=== PATIENT | male | born 1950 | race Caucasian/White ===

== ENCOUNTER 2018-07-24 11:22 | Day surgery (SDC) | payer MEDICARE, OTHER ==
[2018-07-20 11:51] VITALS: BMI 27.8
[~2018-07-24 11:22] MED LIST: ALPRAZolam 0.25 MG TAB PO PRN; ALPRAZolam 0.5 MG TAB PO PRN; ASPIRIN 325 MG TAB PO STA; ATORVASTATIN 80 MG TAB PO STA; NITROGLYCERIN SL TABS 0.4 MG TAB SUBLINGUAL PRN; SODIUM CHLORIDE 0.9% 1,000 ML in EMPTY BAG 1 BAG IV ONE
[2018-07-24 12:00] LABS: Basophils # (A) 0.1 k/uL (0-0.2); Basophils % (A) 1 %; Eosinophils # (A) 0.4 k/uL (0-0.7); Eosinophils % (A) 4 %; HCT 44.6 % (39.0-53.0); HGB 14.4 gm/dL (13.0-17.5); Lymphocytes # (A) 2.7 k/uL (1.0-4.8); Lymphocytes % (A) 29 %; MCHC 32.3 g/dL (31.0-37.0); MCV 92.7 fL (80.0-100.0); Mean Platelet Volume 7.8; Monocytes # (A) 0.7 k/uL (0-1.0); Monocytes % (A) 7 %; Neutrophils # (A) 5.2 k/uL (1.3-7.7); Neutrophils % (A) 57 %; Platelet Count 172 k/uL (150-450); RBC 4.81 m/uL (4.30-5.90); RDW 14.2 % (11.5-15.5); WBC 9.2 k/uL (3.8-10.6)
[2018-07-24] MEDS ORDERED: SODIUM CHLORIDE 0.9% 1,000 ML IV ONE (12:00)
[2018-07-24 12:14] LABS: Anion Gap 5 mmol/L; Blood Urea Nitrogen 18 mg/dL (9-20); Calcium 8.9 mg/dL (8.4-10.2); Carbon Dioxide 24 mmol/L (22-30); Chloride 114 mmol/L (98-107); Glucose 107 mg/dL (74-99); Potassium 4.4 mmol/L (3.5-5.1); Sodium 143 mmol/L (137-145)
[2018-07-24] MEDS ORDERED: VERAPAMIL 2.5 MG/ML 2 ML AMP ONE (12:33)
[2018-07-24] MEDS ORDERED: LIDOCAINE 1% INJ 10MG/ML (20 ML MDV) ONE (12:33)
[2018-07-24] MEDS ORDERED: MIDAZOLAM 2 MG/2 ML VIAL ONE (12:37)
[2018-07-24] MEDS ORDERED: diphenhydrAMINE 50 MG/ML 1 ML VIAL ONE (12:37)
[2018-07-24] MEDS ORDERED: diphenhydrAMINE 50 MG/ML 1 ML VIAL IVP ONE (12:39)
[2018-07-24] MEDS ORDERED: MIDAZOLAM 2 MG/2 ML VIAL IV ONE (12:39)
[2018-07-24] MEDS ORDERED: LIDOCAINE 1% INJ 10MG/ML (20 ML MDV) SQ ONE (12:48)
[2018-07-24] MEDS: VERAPAMIL SYRINGE (5 MG/10 ML) INTRAARTER ONE ×2 (12:50→13:42)
[2018-07-24] MEDS ORDERED: BIVALIRUDIN 250 MG in SODIUM CHLORIDE 0.9% 50 ML IV ONE (13:07)
[2018-07-24] MEDS ORDERED: BIVALIRUDIN BOLUS 250 MG/50 ML IV ONE (13:07)
[2018-07-24] MEDS ORDERED: IOPAMIDOL-370 100ML BTL INJ ONE ×2 (13:13→13:49)
[2018-07-24] MEDS ORDERED: niCARdipine Syringe (1,000 mcg/10 mL) INTRACORON ONE (13:39)
[2018-07-24] MEDS ORDERED: TICAGRELOR 90 MG TAB ONE (13:40)
[2018-07-24] MEDS ORDERED: TICAGRELOR 90 MG TAB PO ONE (13:42)
[2018-07-24] MEDS ORDERED: ZOLPIDEM 5 MG TAB PO PRN (13:48)
[2018-07-24] MEDS ORDERED: MAG HYDROX/AL HYDROX/SIMETH 30 ML CUP PO PRN (13:48)
[2018-07-24] MEDS ORDERED: ATROPINE SULFATE 0.1 MG/ML 10ML SYRINGE IV PRN (13:48)
[2018-07-24] MEDS ORDERED: RX INFO: IV CONTRAST WAS GIVEN 1 EACH MISC MISCELLANE PRN (13:48)
[2018-07-24] MEDS ORDERED: NITROGLYCERIN SL TABS 0.4 MG TAB SUBLINGUAL PRN ×2 (13:48→14:26)
[2018-07-24] MEDS ORDERED: MORPHINE SULFATE 4 MG/ML SYRINGE ONE (13:55)
[2018-07-24] MEDS ORDERED: MORPHINE SULFATE 4 MG/ML SYRINGE IV ONE (13:56)
[2018-07-24] MEDS ORDERED: HYDROcodone/APAP 10-325MG 1 EACH TAB PO PRN (14:26)
[2018-07-24] MEDS ORDERED: DICLOFENAC SODIUM GEL 100 GM TUBE TOPICAL PRN (14:26)
[2018-07-24] MEDS ORDERED: FUROSEMIDE 20 MG TAB PO PRN (14:26)
[2018-07-24] MEDS: IPRATROPIUM-ALBUTEROL 3 ML NEB INHALATION SCH ×2 (15:23→19:24)
[2018-07-24] MEDS: SODIUM CHLORIDE 0.9% 1,000 ML IV SCH (16:16)
[2018-07-24] MEDS: CYCLOBENZAPRINE 10 MG TAB PO SCH ×2 (16:16→22:03)
[2018-07-24 19:45] VITALS: RESP 18
[2018-07-24] MEDS: GABAPENTIN 300 MG CAP PO SCH (19:47)
[2018-07-24] MEDS: METOPROLOL TARTRATE 50 MG TAB PO SCH (19:47)
[2018-07-24] MEDS ORDERED: FLUTICASONE 110 MCG INHALER INHALATION SCH (20:00)
[2018-07-24] MEDS ORDERED: ATORVASTATIN 80 MG TAB PO SCH (21:00)
[2018-07-24] MEDS ORDERED: MONTELUKAST 10 MG TAB PO SCH (21:00)
[2018-07-24] MEDS ORDERED: TAMSULOSIN 0.4 MG CAP.ER.24H PO SCH (21:00)
[2018-07-24] MEDS ORDERED: DOXAZOSIN 1 MG TAB PO SCH (21:00)
--- NOTE | 2018-07-24 21:44 | CC ---
CARDIAC CATHETERIZATION REPORT DATE OF SERVICE: 07/24/2018 PROCEDURE: 1. Left heart catheterization and coronary angiography. 2. Percutaneous transluminal coronary angioplasty and stenting of the major diagonal branch of left anterior descending coronary artery with a drug-eluting stent. 3. Percutaneous transluminal coronary angioplasty and stenting of an in-stent restenosis within the mid left anterior descending coronary artery. PERFORMED BY: Dr. Rob Way. Moderate conscious sedation time was 57 minutes. Patient was administered Benadryl, Versed and morphine 1 mg. His oxygen saturation, hemodynamics and EKG were monitored closely. CLINICAL INFO : Pt with known prior Ant PR and multiple LAD PCI, presents with persistent Angina. Advised cath, PCI if needed. CARDIAC CATHETERIZATION FINDINGS: 1. The left ventricular end-diastolic pressure was about was 14-15 mmHg without any gradient across the aortic valve. LV gram was not performed. 2. Right coronary artery is a dominant vessel with a 55% proximal lesion and minor irregularities. Distal RCA also has a 40% lesion and bifurcates into a large PDA and PLV. This is a dominant vessel. 3. Left main is a long, patent, disease-free vessel that bifurcates into LAD and circumflex. 4. Left anterior descending coronary artery: This vessel was stented on multiple occasions. The mid segment within the stented area has about a 55% stenosis. The flow also is somewhat sluggish in the LAD. There is a small septal branch that comes off from the LAD which also has some sluggish flow. Very proximally a large diagonal branch comes off and this has a proximal lesion of 70% to 80% and beyond it another 40% lesion is noted and it bifurcates into 2 branches. 5. Circumflex coronary artery: This is a small nondominant vessel which gives off a single obtuse marginal laterally and then runs in the AV groove. There are minor irregularities, but no significant disease is noted. PROCEDURE DETAILS: Under strict aseptic precautions and local anesthesia a 6-Japanese introducer was placed in the right radial artery. Using an Ultimate 1 catheter, I performed selective coronary angiography of both coronary arteries, and also a pigtail catheter was used to check LV pressure, but LV gram was not performed. PCI PROCEDURE DETAILS: I used a Voda left 3.5 curved guide catheter to cannulate the left coronary artery. A Whisper J-wire was used to cross the lesion in the diagonal and the wire was kept distally. Predilatation of the diagonal lesion was performed using a 2.5 caliber 8 mm long Trek balloon. I then deployed an 8 mm long 2.5 caliber Xience stent at 12 atmospheres. It appeared that the stent was not very well expanded and the balloon in the stent seemed to have ruptured. I recognized this immediately. The balloon was taken out and I then used an 8 mm long NC Trek balloon and dilated the stent to 12 atmospheres. Excellent angiographic result was achieved. I then advanced the wire into the LAD, and within the proximal two thirds of the stented segment I deployed a new 2.75 caliber 18 mm long Xience stent at 15 atmospheres. Excellent angiographic result was achieved. The distal portion of the previous stent was also dilated with the same balloon at 12 atmospheres. Excellent angiographic result without complication was achieved. The patient received 180 mg of Brilinta and also received Angiomax bolus and infusion as per protocol. The sheath and catheters were taken out and TR band applied as per protocol. Saturation in the fingers of the right hand was 93%. Excellent angiographic result without complication was achieved and the patient was sent to the room in a stable condition. The findings were discussed at length with the family members. MMODL / IJN: [id number] / HAM
--- NOTE | 2018-07-24 21:47 | LTR ---
July 24, 2018 To: Dr. Lety Gerardo Re: Clif Bryant (54) Dear Dr. Gerardo, Thank you for the opportunity to participate in the care of Mr. Bryant. I had the pleasure of evaluating the patient in the office a couple of weeks ago, and because of symptoms of unstable angina I performed coronary angiography which revealed a significant lesion in a major diagonal branch, and also there was some in-stent restenosis of LAD. These were addressed with two drug-eluting stent with excellent results. I expect the patient to be discharged tomorrow if he remains stable. Thank you for your referral. Please call for questions. With kindest regards. Sincerely yours, Rob CHAIREZ / GREG: [id number] /
[2018-07-25 07:13] LABS: Basophils % (A) 1 %; Eosinophils # (A) 0.3 k/uL (0-0.7); Eosinophils % (A) 3 %; HCT 42.2 % (39.0-53.0); HGB 13.5 gm/dL (13.0-17.5); Lymphocytes # (A) 2.5 k/uL (1.0-4.8); Lymphocytes % (A) 28 %; MCV 93.8 fL (80.0-100.0); Mean Platelet Volume 8.4; Monocytes # (A) 0.6 k/uL (0-1.0); Monocytes % (A) 7 %; Neutrophils # (A) 5.4 k/uL (1.3-7.7); Neutrophils % (A) 60 %; Platelet Count 147 k/uL (150-450); RBC 4.49 m/uL (4.30-5.90); RDW 14.2 % (11.5-15.5); WBC 9.1 k/uL (3.8-10.6)
[2018-07-25 07:28] LABS: Anion Gap 5 mmol/L; Blood Urea Nitrogen 13 mg/dL (9-20); Calcium 8.6 mg/dL (8.4-10.2); Carbon Dioxide 23 mmol/L (22-30); Chloride 114 mmol/L (98-107); Glucose 80 mg/dL (74-99); Potassium 4.3 mmol/L (3.5-5.1); Sodium 142 mmol/L (137-145)
[2018-07-25] MEDS: SODIUM CHLORIDE 0.9% 1,000 ML IV SCH (08:08)
[2018-07-25] MEDS: METOPROLOL TARTRATE 50 MG TAB PO SCH (08:09)
[2018-07-25] MEDS: CYCLOBENZAPRINE 10 MG TAB PO SCH (08:10)
[2018-07-25] MEDS: GABAPENTIN 300 MG CAP PO SCH (08:12)
[2018-07-25] MEDS ORDERED: ASPIRIN 81 MG PO SCH (09:00)
[2018-07-25] MEDS ORDERED: LISINOPRIL 10 MG TAB PO SCH (09:00)
[2018-07-25] MEDS ORDERED: CLOPIDOGREL 75 MG TAB PO SCH (09:00)
[2018-07-25] MEDS ORDERED: ATORVASTATIN 80 MG TAB PO SCH (09:00)
[2018-07-25] MEDS ORDERED: ISOSORBIDE MONONITRATE ER 30 MG TAB.ER.24H PO SCH (09:00)
[2018-07-25 09:34] VITALS: BP 147/84; PULSE 84; TEMP 96.1
--- NOTE | 2018-07-25 12:06 | DS ---
DISCHARGE SUMMARY DATE OF ADMISSION: 07/24/2018 DATE OF DISCHARGE: 07/25/2018 DIAGNOSES: 1. Unstable angina with history of prior myocardial infarction. PROCEDURES PERFORMED: 1. Left heart catheterization and coronary angiography. 2. PTCA and stenting of major diagonal branch with a drug-eluting stent. 3. PTCA and stenting of the previously stented in-stent mid LAD restenotic lesion. Mr. Bryant was brought in electively for a cardiac cath because of recurrent episodes of chest discomfort suggestive of angina. This gentleman underwent stenting of mid LAD on multiple occasions. The last being in 2016 when he had a total occlusion at [facility]. Procedure was performed uneventfully from the right radial approach. The patient had a new lesion in the diagonal branch which was a fairly large-sized diagonal branch with a proximal lesion. This was addressed with a drug-eluting stent of 2.5 caliber. Subsequently, I performed a dilatation and stenting of a previously stented mid LAD within the previous stent. Excellent angiographic result was achieved. Postprocedure course was uneventful. Procedure was performed from the right radial approach. This morning, patient is doing well, asymptomatic, ambulating without symptoms. His right radial cath site is clean and dry. Blood pressure is 120/70, pulse rate is 70 per minute. EKG revealed evidence of old anterior IL and sinus mechanism unchanged. Laboratory data was good. S1, S2 heard normally. Lungs were clear. There is a short systolic murmur. Lungs are clear. Abdomen and lower extremity exam was unchanged. There was no JVD. This patient will be discharged today and he will see me or my nurse practitioner in the office in about 1 week. Discharge instructions regarding activity, diet and medications were given. He will be on aspirin and Plavix along with statin agents and beta kaila. The patient was given discharge instructions and also followup appointment information. MMODL / IJN: [id number] /
== END 2018-07-25 09:30 | disposition home or self-care (01) ==
LOC: CATHCVL 11:22 → 6SEL 13:42 → CATHCVL 07-25 09:30
PROVIDERS: ATTEND Internal Medicine Interventional Cardiology
DX: I25.110 Atherosclerotic heart disease of native coronary artery with unstable angina pectoris (principal); T82.855A Stenosis of coronary artery stent, initial encounter; I10 Essential (primary) hypertension; E78.00 Pure hypercholesterolemia, unspecified; I69.398 Other sequelae of cerebral infarction; H54.8 Legal blindness, as defined in USA; I25.2 Old myocardial infarction; F17.210 Nicotine dependence, cigarettes, uncomplicated; Z95.5 Presence of coronary angioplasty implant and graft; Z79.82 Long term (current) use of aspirin; Z79.51 Long term (current) use of inhaled steroids; Z79.899 Other long term (current) drug therapy
CPT/HCPCS: 94640 ×2; 93458; 80048 ×2; 85025 ×2; C9600; C9601; C1769; C1887; C1725 ×2; C1894; C1874; J2250; J2270; J1200; J2001; J0583; Q9967

== ENCOUNTER 2018-09-21 10:00 | Inpatient (IN) | payer MEDICARE ==
[2018-09-21 12:51] LABS: Glucose,Whole Blood 123 mg/dL (75-99)
[2018-09-21] MEDS ORDERED: MIDAZOLAM 2 MG/2 ML VIAL IVP ONE (12:55)
[2018-09-21] MEDS ORDERED: LIDOCAINE 1% INJ 10MG/ML (20 ML MDV) SQ ONE (12:57)
[2018-09-21] MEDS ORDERED: VERAPAMIL SYRINGE (5 MG/10 ML) INTRAARTER ONE (12:59)
[2018-09-21] MEDS ORDERED: HEPARIN SODIUM 1,000 UN/ML (10ML VL) IV ONE (13:01)
[2018-09-21] MEDS ORDERED: SODIUM CHLORIDE 0.9% 1,000 ML IV ONE (13:01)
[2018-09-21] MEDS ORDERED: IOPAMIDOL-370 100ML BTL INJ ONE (13:15)
[2018-09-21] MEDS ORDERED: CLOPIDOGREL 75 MG TAB PO ONE (13:18)
[2018-09-21] MEDS ORDERED: RX INFO: IV CONTRAST WAS GIVEN 1 EACH MISC MISCELLANE PRN (13:24)
[2018-09-21] MEDS ORDERED: SODIUM CHLORIDE 0.9% 1,000 ML IV SCH (13:30)
[2018-09-21] MEDS ORDERED: FUROSEMIDE 20 MG TAB PO PRN (13:53)
[2018-09-21] MEDS ORDERED: HYDROcodone/APAP 10-325MG 1 EACH TAB PO PRN (13:53)
[2018-09-21] MEDS ORDERED: NITROGLYCERIN SL TABS 0.4 MG TAB SUBLINGUAL PRN ×2 (13:53)
[2018-09-21] MEDS ORDERED: ATORVASTATIN 80 MG TAB PO SCH (14:00)
--- NOTE | 2018-09-21 14:19 | CC ---
CARDIAC CATHETERIZATION REPORT DATE OF SERVICE: 09/21/2018 PROCEDURE: Left heart catheterization, coronary angiography. PERFORMED BY: Dr. Rob Way. Moderate conscious sedation time was 20 minutes. Patient was given Versed and his oxygen saturation, hemodynamics and EKG were monitored closely. CLINICAL INFORMATION: Mr. Clif Bryant is a 68-year-old gentleman with history of hypertension, hyperlipidemia, previous occipital stroke who is legally blind. He underwent stenting of a restenotic proximal/mid LAD lesion on July 24 of this year. He also had a stenting of the diagonal branch, which was a de Vamshi lesion at the same. He presented to [facility] with chest pain and shortness of breath, had negative troponins, was seen and evaluated by Dr. Dalal, who advised cardiac catheterization and he was transferred here for the procedure. Risks, benefits, options, rationale were explained to the patient. PROCEDURE NOTE: Under local anesthesia and strict aseptic precautions, a 6-Tajik introducer was placed in the right radial artery. Using standard Ta catheters I performed coronary angiography and the same right Ta catheter was used to check LV pressures. LV-gram was not performed. Catheter was taken out and sheath was taken out and TR band applied as per protocol with saturation of the fingers of the right hand of 96%. The patient tolerated procedure well without complications. CARDIAC CATHETERIZATION FINDINGS: The left ventricular end-diastolic pressure was 12 mmHg and there was no gradient across the aortic valve. CORONARY ANGIOGRAPHY FINDINGS: LEFT MAIN CORONARY ARTERY: Short patent disease-free vessel which bifurcates into LAD and circumflex. There is no significant disease in the left main coronary artery. LEFT ANTERIOR DESCENDING CORONARY ARTERY: Good caliber vessel extends along the anterior wall. There is evidence of a previous stented segment. Within the proximal portion of stented segment and also proximal to it, a stent was placed on July 24, that area is widely patent with remarkably good angiographic appearance and flow. There is no evidence of any restenosis. The lesion is less than 20%. Major diagonal branch that comes off very proximally was also stented. It is widely patent with very good flow. LAD therefore has 2 areas of stenting. The LAD itself and the diagonal, both of which are widely patent with very good flow. No evidence of any restenosis is noted. This is an area where patient had a previous myocardial infarction. LEFT POSTERIOR CIRCUMFLEX CORONARY ARTERY: A small nondominant vessel that gives off a single obtuse marginal, runs laterally, both vessels are small in caliber and distribution no significant disease. RIGHT CORONARY ARTERY: Large dominant vessel proximally. There is about 40% to 45% lesion at the origin of an acute marginal branch. This was similar or better compared to the previous study from June. Distally the vessel bifurcates into PDA and PLV. No significant disease. The dominant RCA therefore has a 40% to 45% proximal lesion. No other significant disease is noted. LEFT VENTRICULOGRAM: LV-gram was not performed. FINAL IMPRESSION: This patient has a right dominant system. His previously stented LAD in the proximal portion and the major diagonal that was stented both of which were stented on July 24 are now widely patent with remarkably good angiographic appearance and flow. Nondominant circumflex is free of significant disease. RCA has about a 40% proximal lesion and it is a dominant vessel and filling pressures are normal. RECOMMENDATIONS: I am recommending that we will continue medical therapy. We will check an echocardiogram to assess LV function and I will add Lasix 40 mg to his regimen starting tomorrow. Patient will have an echocardiogram today and he will be discharged. Results were discussed with the patient and also family members and I expect that he will be discharged later on today and will keep his appointments. We will check an echocardiogram to assess LV function. MMODL / IJN: [id number] /
[2018-09-21 15:35] VITALS: RESP 20
[2018-09-21] MEDS ORDERED: CYCLOBENZAPRINE 5 MG TAB PO SCH (16:00)
--- NOTE | 2018-09-21 17:28 | ECHOF ---
Referral Reason:LV FUNCTION MEASUREMENTS -------- HEIGHT: 177.8 cm WEIGHT: 87.1 kg BP: RVIDd: 2.6 cm (< 3.3) IVSd: 1.4 cm (0.6 - 1.1) LVIDd: 4.6 cm (3.9 - 5.3) LVPWd: 1.4 cm (0.6 - 1.1) IVSs: 1.5 cm LVIDs: 3.6 cm LVPWs: 1.5 cm LAESV Index (A-L): 17.32 ml/m Ao Diam: 2.4 cm (2.0 - 3.7) AV Cusp: 1.4 cm (1.5 - 2.6) LA Diam: 2.3 cm (2.7 - 3.8) EPSS: 1.1 cm MV E Gonzalo: 0.92 m/s MV DecT: 221 ms MV A Gonzalo: 1.05 m/s MV E/A Ratio: 0.88 RAP: 5.00 mmHg RVSP: 9.75 mmHg MV EF SLOPE: 104.15 mm/s (70 - 150) MV EXCURSION: 1.69 cm (> 18.000) FINDINGS -------- Sinus rhythm. This was a technically adequate study. The left ventricular size is normal. There is moderate concentric left ventricular hypertrophy. O verall left ventricular systolic function is mild-moderately impaired with, an EF between 40 - 45 %. Mid anteroseptal LV wall motion is hypokinetic. Apical anterior LV wall motion is hypokinetic. Apical septum LV wall motion is hypokinetic. The right ventricle is normal in size and function. Normal LA size by volume 22+/-6 ml/m2. The right atrium is normal in size. There is mild aortic valve sclerosis. There is no evidence of aortic regurgitation. The mitral valve leaflets are mildly thickened. Mild mitral regurgitation is present. Mild tricuspid regurgitation present. Right ventricular systolic pressure is normal at < 35 mmHg. There is no evidence of pulmonary hypertension. The pulmonic valve was not well visualized. There is no pulmonic regurgitation present. The aortic root size is normal. Normal inferior vena cava with normal inspiratory collapse consistent with estimated right atrial pre ssure of 5 mmHg. There is no pericardial effusion. CONCLUSIONS -------- 1. Sinus rhythm. 2. This was a technically adequate study. 3. The left ventricular size is normal. 4. There is moderate concentric left ventricular hypertrophy. 5. Overall left ventricular systolic function is mild-moderately impaired with, an EF between 40 - 45 %. 6. Mid anteroseptal LV wall motion is hypokinetic. 7. Apical anterior LV wall motion is hypokinetic. 8. Apical septum LV wall motion is hypokinetic. 9. Normal LA size by volume 22+/-6 ml/m2. 10. There is mild aortic valve sclerosis. 11. The mitral valve leaflets are mildly thickened. 12. Mild mitral regurgitation is present. 13. Mild tricuspid regurgitation present. 14. Right ventricular systolic pressure is normal at < 35 mmHg. 15. The pulmonic valve was not well visualized. 16. There is no pulmonic regurgitation present. 17. The aortic root size is normal. 18. There is no pericardial effusion. OPERATOR AUTOMATED PROCESS: Jan Aj RDCS
[2018-09-21 17:31] VITALS: BP 106/56; PULSE 68; TEMP 97
[2018-09-21] MEDS ORDERED: IPRATROPIUM-ALBUTEROL 3 ML NEB INHALATION SCH (18:00)
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
[2018-09-21] MEDS ORDERED: GABAPENTIN 300 MG CAP PO SCH (21:00)
[2018-09-21] MEDS ORDERED: MONTELUKAST 10 MG TAB PO SCH (21:00)
[2018-09-21] MEDS ORDERED: METOPROLOL TARTRATE 50 MG TAB PO SCH (21:00)
[2018-09-22] MEDS ORDERED: TAMSULOSIN 0.4 MG CAP.ER.24H PO SCH (09:00)
[2018-09-22] MEDS ORDERED: CLOPIDOGREL 75 MG TAB PO SCH (09:00)
[2018-09-22] MEDS ORDERED: DOXAZOSIN 1 MG TAB PO SCH (09:00)
[2018-09-22] MEDS ORDERED: LISINOPRIL 10 MG TAB PO SCH (09:00)
[2018-09-22] MEDS ORDERED: ASPIRIN 81 MG PO SCH (09:00)
[2018-09-22] MEDS ORDERED: ISOSORBIDE MONONITRATE ER 30 MG TAB.ER.24H PO SCH (09:00)
[2018-09-22] MEDS ORDERED: FUROSEMIDE 40 MG TAB PO SCH (09:00)
== END 2018-09-21 19:14 | disposition home or self-care (01) | DRG 286 ==
LOC: 3SCARD 12:00
PROVIDERS: ADMIT Family Medicine; ATTEND Family Medicine
PROC: 4A023N7 Measurement of Cardiac Sampling and Pressure, Left Heart, Percutaneous Approach (ICD-10-PCS; principal; 2018-09-21 12:40)
PROC: B2111ZZ Fluoroscopy of Multiple Coronary Arteries using Low Osmolar Contrast (ICD-10-PCS; principal; 2018-09-21 12:40)
DX: I25.10 Atherosclerotic heart disease of native coronary artery without angina pectoris (principal); I50.23 Acute on chronic systolic (congestive) heart failure; J45.51 Severe persistent asthma with (acute) exacerbation; E66.9 Obesity, unspecified; Z68.27 Body mass index [BMI] 27.0-27.9, adult; E78.5 Hyperlipidemia, unspecified; G47.33 Obstructive sleep apnea (adult) (pediatric); I11.0 Hypertensive heart disease with heart failure; I25.2 Old myocardial infarction; I42.9 Cardiomyopathy, unspecified; N40.0 Benign prostatic hyperplasia without lower urinary tract symptoms; Z79.02 Long term (current) use of antithrombotics/antiplatelets; Z79.82 Long term (current) use of aspirin; Z79.899 Other long term (current) drug therapy; Z80.1 Family history of malignant neoplasm of trachea, bronchus and lung; Z82.5 Family history of asthma and other chronic lower respiratory diseases; Z86.73 Personal history of transient ischemic attack (TIA), and cerebral infarction without residual deficits; Z87.891 Personal history of nicotine dependence; Z95.5 Presence of coronary angioplasty implant and graft; N18.2 Chronic kidney disease, stage 2 (mild); R73.02 Impaired glucose tolerance (oral)
CPT/HCPCS: 93306; 93458

== ENCOUNTER → 2020-05-13 | Outpatient (CLI) | payer MEDICARE ==
[2020-05-13 13:35] LABS: HCT 47.2 % (39.0-53.0); HGB 15.5 gm/dL (13.0-17.5); MCH 31.1 pg (25.0-35.0); MCHC 32.7 g/dL (31.0-37.0); Mean Platelet Volume 8.8; Platelet Count 167 k/uL (150-450); RBC 4.97 m/uL (4.30-5.90); RDW 14.2 % (11.5-15.5); WBC 10.5 k/uL (3.8-10.6)
[2020-05-13 13:47] LABS: Potassium 5.1 mmol/L (3.5-5.1)
== END | disposition home or self-care (01) ==
LOC: LABPAT 12:21
PROVIDERS: ATTEND Internal Medicine Interventional Cardiology
DX: Z01.818 Encounter for other preprocedural examination (principal); I25.10 Atherosclerotic heart disease of native coronary artery without angina pectoris
CPT/HCPCS: 36415; 80051; 82565; 84520; 85027

== ENCOUNTER → 2020-05-14 | Day surgery (SDC) | payer MEDICARE ==
[2020-05-12 15:33] VITALS: BMI 28.7
[~2020-05-14] MED LIST changes: +BUDESONIDE 0.5 MG/2 ML NEBU INHALATION SCH; +HEPARIN SODIUM 1,000 UN/ML (10ML VL) IV ONE; +IOPAMIDOL-370 100ML BTL INJ ONE; +IPRATROPIUM-ALBUTEROL 3 ML NEB INHALATION STA; +LIDOCAINE 1% INJ 10MG/ML (20 ML MDV) ONE; +LIDOCAINE 1% INJ 10MG/ML (20 ML MDV) SQ ONE; +MIDAZOLAM 2 MG/2 ML VIAL IVP ONE; +SODIUM CHLORIDE 0.9% 1,000 ML IV SCH; +VERAPAMIL 2.5 MG/ML 2 ML AMP ONE; +VERAPAMIL SYRINGE (5 MG/10 ML) INTRAARTER ONE
[2020-05-14 10:30] VITALS: TEMP 98.1
--- NOTE | 2020-05-14 13:33 | CC ---
CARDIAC CATHETERIZATION REPORT DATE OF SERVICE: 05/14/2020 PROCEDURE: Left heart catheterization and coronary angiography. PERFORMED BY: Dr. Rob Way. ANESTHESIA: Moderate conscious sedation time was 22 minutes. Patient was administered Versed. Oxygen saturation, hemodynamics and EKG were monitored closely. CLINICAL INFORMATION: Mr. Clif Bryant is a 70-year-old gentleman with a history of a previous occipital stroke and legally blind. He has CAD with a prior [place] in 2006 with an LAD intervention. Since then, he has had multiple interventions. The last one was in June of 2018 when I performed stenting of the proximal portion of the major diagonal as well as mid LAD. The mid LAD was an in-stent restenosis. He had an excellent angiographic result and was doing well, but has been having chest pain and equivocal stress test and recurrent chest pain. Therefore was advised cardiac cath after due discussion regarding risks, benefits, and options. PROCEDURE NOTE: Under local anesthesia and strict aseptic precautions, a 6-Slovenian introducer was placed in the right radial artery. Using standard Ta catheters, I performed coronary angiography and the same right Ta catheter was used to check LV pressures. LV gram was not performed. The sheath was taken out and TR band applied as per protocol with saturations of the fingers of the right hand of more than 93%. Patient tolerated procedure well. CARDIAC CATHETERIZATION FINDINGS: The left ventricular end-diastolic pressure was 14 mmHg without any gradient across aortic valve. CORONARY ANGIOGRAPHY FINDINGS: RIGHT CORONARY ARTERY: Technically, this is a dominant vessel that has minor irregularities with no significant disease. In the proximal 1/3, there is a 40% to 45% stenosis unchanged from before whereas the acute marginal comes off then the caliber improves and distally bifurcates into PDA and PLV. Distal PDA has mild diffuse disease. The RCA therefore has no critical disease. There is a 40% to 45% proximal lesion, unchanged. LEFT MAIN CORONARY ARTERY: Long patent vessel, disease-free, bifurcates into LAD and circumflex. LEFT ANTERIOR DESCENDING CORONARY ARTERY: Good caliber vessel extends along the anterior wall and gives off a high diagonal branch very proximally. No significant disease in the stented area in the proximal portion of the diagonal branch. The rest of the diagonal branch is free of significant disease. LAD after the origin of the diagonal branch has about a 30% narrowing and the stented segment is widely patent with good flow. There is no more than 40% narrowing within the stented segment. Distally, it gives off smaller septal and diagonal branches. The stent in the LAD and diagonal is widely patent. LEFT POSTERIOR CIRCUMFLEX CORONARY ARTERY: Technically, this is a small caliber, small distribution vessel. Limited area of myocardium is being supplied by it. No significant disease. Left ventriculogram was not performed. FINAL IMPRESSION: This patient has a widely patent LAD in the midportion where he had a previous in-stent restenosis and stenting in June 2018. The diagonal that was stented also is widely patent. The circumflex has no significant disease, nondominant. RCA is dominant, has a 40% to 45% proximal lesion unchanged. RECOMMENDATIONS: Findings were discussed with the patient and his . No intervention necessary. Continued medical therapy with risk factor modification advised. Patient will be discharged later on today and I will see him in one week. MMGEORGIANAL / MARAN: [id number] /
[2020-05-14 15:10] VITALS: RESP 16
[2020-05-14 18:03] VITALS: BP 129/81; PULSE 66
== END ==
LOC: CATHCVL 09:14
PROVIDERS: ATTEND Internal Medicine Interventional Cardiology
DX: I25.110 Atherosclerotic heart disease of native coronary artery with unstable angina pectoris (principal); I10 Essential (primary) hypertension; R94.39 Abnormal result of other cardiovascular function study; I25.5 Ischemic cardiomyopathy; I25.2 Old myocardial infarction; Z87.891 Personal history of nicotine dependence; E78.00 Pure hypercholesterolemia, unspecified; Z95.5 Presence of coronary angioplasty implant and graft; E78.5 Hyperlipidemia, unspecified; I69.398 Other sequelae of cerebral infarction; H54.8 Legal blindness, as defined in USA; J44.9 Chronic obstructive pulmonary disease, unspecified; Z79.02 Long term (current) use of antithrombotics/antiplatelets; Z79.82 Long term (current) use of aspirin; Z79.52 Long term (current) use of systemic steroids; Z79.899 Other long term (current) drug therapy
CPT/HCPCS: 94640; 93458; C1769; C1894; J2250; J2001; J1644; Q9967

== ENCOUNTER → 2020-07-30 | Outpatient (CLI) | payer MEDICARE ==
--- NOTE | 2020-07-30 17:16 | ECHOF ---
Referral Reason:R55 syncope and collapse MEASUREMENTS -------- HEIGHT: 180.3 cm WEIGHT: 89.4 kg BP: RVIDd: 2.1 cm (< 3.3) IVSd: 0.7 cm (0.6 - 1.1) LVIDd: 5.2 cm (3.9 - 5.3) LVPWd: 0.7 cm (0.6 - 1.1) IVSs: 0.6 cm LVIDs: 4.3 cm LVPWs: 1.3 cm Ao Diam: 2.7 cm (2.0 - 3.7) AV Cusp: 1.8 cm (1.5 - 2.6) LA Diam: 2.9 cm (2.7 - 3.8) MV EXCURSION: 10.065 mm (> 18.000) MV EF SLOPE: 59 mm/s (70 - 150) EPSS: 2.5 cm MV E Gonzalo: 0.63 m/s MV DecT: 277 ms MV A Gonzalo: 0.90 m/s MV E/A Ratio: 0.70 RAP: 5.00 mmHg RVSP: 9.27 mmHg FINDINGS -------- This was a technically difficult study with suboptimal views. The left ventricular size is normal. Left ventricular wall thickness is normal. Overall left vent ricular systolic function is moderate-severely impaired with, an EF between 30 - 35 %. Apical septu m LV wall motion is hypokinetic. [place] Hypokinesis. The right ventricle is normal in size. The left atrial size is normal. The right atrial size is normal. Lumason used The aortic valve is trileaflet and appears structurally normal. The mitral valve is normal. There is trace mitral regurgitation. The tricuspid valve appears structurally normal. Trace tricuspid regurgitation present. Right librado tricular systolic pressure is normal at < 35 mmHg. There is no pulmonic regurgitation present. The aortic root size is normal. IVC Not well visulized. There is no pericardial effusion. CONCLUSIONS -------- 1. This was a technically difficult study with suboptimal views. 2. The left ventricular size is normal. 3. Left ventricular wall thickness is normal. 4. Overall left ventricular systolic function is moderate-severely impaired with, an EF between 30 - 35 %. 5. Apical septum LV wall motion is hypokinetic. 6. [place] Hypokinesis. 7. Lumason used 8. There is trace mitral regurgitation. 9. Trace tricuspid regurgitation present. 10. There is no pericardial effusion. DIRECTOR OPERATING ROOM: Etelvina Young RDCS
--- NOTE | 2020-07-31 06:55 | US ---
EXAMINATION TYPE: US carotid duplex BILAT DATE OF EXAM: 07/30/2020 COMPARISON: NONE CLINICAL HISTORY: R55 SYNCOPE AND COLLAPSE. syncope EXAM MEASUREMENTS: RIGHT: Peak Systolic Velocity (PSV) cm/sec ----- Right CCA: 76.0 ----- Right ICA: 110 ----- Right ECA: 110 ICA/CCA ratio: 1.45 RIGHT: End Diastole cm/sec ----- Right CCA: 22.1 ----- Right ICA: 25.8 ----- Right ECA: 0.0 LEFT: Peak Systolic Velocity (PSV) cm/sec ----- Left CCA: 66.6 ----- Left ICA: 64.3 ----- Left ECA: 88.1 ICA/CCA ratio: 0.97 LEFT: End Diastole cm/sec ----- Left CCA: 17.8 ----- Left ICA: 24.3 ----- Left ECA: 15.6 VERTEBRALS (direction of flow): Right Vertebral: Antegrade Left Vertebral: Antegrade Rhythm: Normal Moderate plaque bilateral bifurcations. No evidence of significant stenosis IMPRESSION: Criteria for Assigning % of Stenosis / Diameter reduction (Estimation based on the indirect measurements of the internal carotid artery velocities (ICA PSV). 1. Normal (no stenosis)=ICA PSV < 125 cm/s: ratio < 2.0: ICA EDV<40 cm/s. 2. Less than 50% stenosis=ICA PSV < 125 cm/s: ratio < 2.0: ICA EDV<40 cm/s. 3. 50 to 69% stenosis=ICA PSV of 125 to 230 cm/s: ration 2.0 ? 4.0: ICA EDV 40-100 cm/s. 4. Greater than 70% stenosis to near occlusion= ICA PSV > 230 cm/s: ratio > 4.0: ICA EDV > 100 cm/s. 5. Near occlusion= ICA PSV velocities may be low or undetectable: variable ratio and ICA EDV. 6. Total occlusion=unable to detect flow.
== END | disposition home or self-care (01) ==
LOC: RADECHMAIN 12:49
PROVIDERS: ATTEND Family Medicine
DX: I51.89 Other ill-defined heart diseases (principal); R55 Syncope and collapse
CPT/HCPCS: 93880; C8929; Q9950; 93306

== ENCOUNTER → 2020-07-31 | Outpatient (CLI) | payer MEDICARE ==
--- NOTE | 2020-09-01 11:31 | EM ---
EVENT MONITOR 30 DAY EVENT MONITOR: Patient wore the event monitor for only 22 days. Predominant rhythm is sinus with sinus arrhythmia. There was one 4-beat run of PVCs noted which occurred on 08/06/2020 at 9 am. No symptoms were reported at that time. He had another episode of about 5-6 beat runs of what seems to be like a wide QRS beats could be an aberrancy also. There is evidence of narrow QRS PSVT of about 5-6 beats randomly. There was evidence of wide QRS tachycardia with a long short interval. Possibility of aberrancy should also be considered. It appears that the patient did not really have any significant symptoms. FINAL IMPRESSION: 1. Predominant rhythm is sinus. 2. There are short runs of nonsustained wide QRS tachycardia, some of which are aberrancy and some probably may be ventricular in origin. 3. There are short runs of paroxysmal atrial tachycardia noted. 4. Patient did not have any significant symptoms. MMODL / IJN: [id number] /
== END | disposition home or self-care (01) ==
LOC: RADECHMAIN 11:36
PROVIDERS: ATTEND Family Medicine
DX: I47.1 Supraventricular tachycardia (principal)
CPT/HCPCS: 93270

== ENCOUNTER 2020-11-19 10:22 | Day surgery (SDC) | payer MEDICARE ==
[2020-11-18 10:49] VITALS: BMI 28.4
[~2020-11-19 10:22] MED LIST changes: -ALPRAZolam 0.25 MG TAB PO PRN; -ALPRAZolam 0.5 MG TAB PO PRN; -ASPIRIN 325 MG TAB PO STA; -ATORVASTATIN 80 MG TAB PO STA; -BUDESONIDE 0.5 MG/2 ML NEBU INHALATION SCH; -HEPARIN SODIUM 1,000 UN/ML (10ML VL) IV ONE; -IOPAMIDOL-370 100ML BTL INJ ONE; -IPRATROPIUM-ALBUTEROL 3 ML NEB INHALATION STA; +LACTATED RINGERS 1,000 ML IV SCH; -LIDOCAINE 1% INJ 10MG/ML (20 ML MDV) ONE; -LIDOCAINE 1% INJ 10MG/ML (20 ML MDV) SQ ONE; -MIDAZOLAM 2 MG/2 ML VIAL IVP ONE; -NITROGLYCERIN SL TABS 0.4 MG TAB SUBLINGUAL PRN; -SODIUM CHLORIDE 0.9% 1,000 ML in EMPTY BAG 1 BAG IV ONE; -VERAPAMIL 2.5 MG/ML 2 ML AMP ONE; -VERAPAMIL SYRINGE (5 MG/10 ML) INTRAARTER ONE; +ceFAZolin 1 GM in SODIUM CHLORIDE 0.9% 250 ML IRRIGATION PRN
[2020-11-19] MEDS ORDERED: SODIUM CHLORIDE 0.9% 1,000 ML IV ONE (10:31)
[2020-11-19 11:09] LABS: Basophils # (A) 0.1 k/uL (0-0.2); Basophils % (A) 1 %; Eosinophils # (A) 0.3 k/uL (0-0.7); Eosinophils % (A) 3 %; HGB 15.5 gm/dL (13.0-17.5); Lymphocytes # (A) 2.6 k/uL (1.0-4.8); Lymphocytes % (A) 31 %; MCH 30.6 pg (25.0-35.0); MCHC 33.6 g/dL (31.0-37.0); MCV 91.2 fL (80.0-100.0); Mean Platelet Volume 8.2; Monocytes # (A) 0.6 k/uL (0-1.0); Monocytes % (A) 7 %; Neutrophils # (A) 4.6 k/uL (1.3-7.7); Neutrophils % (A) 56 %; Platelet Count 182 k/uL (150-450); RBC 5.05 m/uL (4.30-5.90); RDW 14.4 % (11.5-15.5); WBC 8.3 k/uL (3.8-10.6)
[2020-11-19 11:19] LABS: African American GFR (CKD) >90 (>60 ml/min/1.73 sqM); Anion Gap 5 mmol/L; Blood Urea Nitrogen 10 mg/dL (9-20); Calcium 8.9 mg/dL (8.4-10.2); Carbon Dioxide 26 mmol/L (22-30); Chloride 107 mmol/L (98-107); Glucose 103 mg/dL (74-99); Non-African American GFR(CKD) 80 (>60 ml/min/1.73 sqM); Sodium 138 mmol/L (137-145)
[2020-11-19] MEDS ORDERED: SODIUM CHLORIDE 0.9% 100 ML BAG ONE (13:02)
[2020-11-19] MEDS ORDERED: ISOPROTERENOL 250 MCG/1.25 ML SYR IV ONE (13:02)
[2020-11-19] MEDS ORDERED: MIDAZOLAM 2 MG/2 ML VIAL ONE (13:02)
[2020-11-19] MEDS ORDERED: fentaNYL (PF) 50 MCG/ML 2 ML AMP ONE (13:02)
[2020-11-19] MEDS ORDERED: ceFAZolin 1,000 MG VIAL ONE (13:02)
[2020-11-19] MEDS ORDERED: LIDOCAINE 1% INJ 10MG/ML (20 ML MDV) ONE (13:21)
[2020-11-19] MEDS ORDERED: LIDOCAINE 1% INJ 10MG/ML (20 ML MDV) SQ ONE (13:32)
[2020-11-19] MEDS ORDERED: FUROSEMIDE 20 MG TAB PO PRN (15:13)
--- NOTE | 2020-11-19 15:34 | P.EPPROC ---
- EP Procedure Note Electrophysiology Procedure Note: Diagnostic EP study indication: This status indication for ischemic cardio myopathy with nonsustained ventricular tachycardia and congestive heart failure class II Patient on guideline directed medical treatment Details Patient was brought to the EP lab in a fasting state. Written informed consent was obtained prior to the procedure The right groin was prepped and draped as a protocol and 3 venous sheaths were placed in the right femoral veins Via this 3 catheters were positioned in the right heart] high radiating To the His bundle catheter and RV catheter Stimulation was performed from the RV apex and then from the high RV septum/RVOT Baseline measurements are as follows Sinus cycle length 867 ms, PA interval 155 ms, QRS 80 ms and QT intervals 376 ms AH interval 93 ms and HV interval 41 ms Sinus recovery times at 600 504 100 ms at 1044, 1027 and 933 ms Accessory pathway conduction VA Wenckebach block 380 ms Burst ablation from the right ventricle from 400 ms down to 180 ms Excessive ablation from the right ventricular apex at [address] trains, up to triple extrastimuli Long short sequences used No inducible ventricular tachycardia Isuprel wide-open followed by 2 mics Burst ablation from 400 ms down to 200 ms Ventricular extra stimulation performed from the RV apex, [address] trains, after triple extrastimuli Long short sequences No arrhythmias The catheter was then moved to the RVOT Once again burst ablation performed access termination performed long short sequence performed No inducible ventricular tachycardia despite [address] trains and after triple extrastimuli All catheters were removed at the end of the procedure FemStop applied to Impression diagnostic EP study performed for risk stratification in the setting of ischemic cardio myopathy ejection fraction 40% and nonsustained ventricular tachycardia Normal baseline measurements Normal sinus node function Normal AV node function No ventricular arrhythmias induced, on and off Isuprel he Plan Maximize beta blockers Suggest Coreg instead of metoprolol
--- NOTE | 2020-11-19 15:36 | P.PRLE ---
RE: Clif Bryant Dear Dr. Gerardo Patient underwent a diagnostic EP study to look for any ventricular arrhythmias. He could not induce any VT or VF both on and off Isuprel At this time I would simply continue maximizing his heart failure medications and therefore you and Dr. Way as before Thank you for entrusting me with the care of the patient Warm regards Sincerely Donovan Lacey
[2020-11-19 17:30] LABS: Glucose,Whole Blood 85 mg/dL (75-99)
[2020-11-19 18:32] VITALS: RESP 17; TEMP 97.8
[2020-11-19 20:04] LABS: Glucose,Whole Blood 113 mg/dL (75-99)
[2020-11-19] MEDS ORDERED: SACUBITRIL/VALSARTAN 24 MG-26 MG TABLET PO SCH (21:00)
[2020-11-19 21:40] VITALS: BP 149/94; PULSE 85
[2020-11-20] MEDS ORDERED: CLOPIDOGREL 75 MG TAB PO SCH (09:00)
[2020-11-20] MEDS ORDERED: ASPIRIN 81 MG PO SCH (09:00)
[2020-11-20] MEDS ORDERED: ISOSORBIDE MONONITRATE ER 30 MG TAB.ER.24H PO SCH (09:00)
[2020-11-20] MEDS ORDERED: ATORVASTATIN 80 MG TAB PO SCH (09:00)
[2020-11-20] MEDS ORDERED: METOPROLOL TARTRATE 50 MG TAB PO SCH (09:00)
[2020-11-20] MEDS ORDERED: SPIRONOLACTONE 25 MG TAB PO SCH (09:00)
== END 2020-11-19 21:36 | disposition home or self-care (01) ==
LOC: CATHEP 10:22 → 6NMEDSUR 15:26 → CATHEP 21:36
PROVIDERS: ATTEND Internal Medicine Clinical Cardiac Electrophysiology
DX: I47.2 Ventricular tachycardia (principal); I47.1 Supraventricular tachycardia; I11.0 Hypertensive heart disease with heart failure; I10 Essential (primary) hypertension; I50.9 Heart failure, unspecified; I25.5 Ischemic cardiomyopathy; I25.10 Atherosclerotic heart disease of native coronary artery without angina pectoris; I25.2 Old myocardial infarction; Z95.5 Presence of coronary angioplasty implant and graft; Z87.891 Personal history of nicotine dependence; J44.9 Chronic obstructive pulmonary disease, unspecified; M19.90 Unspecified osteoarthritis, unspecified site; H54.62 Unqualified visual loss, left eye, normal vision right eye; K21.9 Gastro-esophageal reflux disease without esophagitis; E78.5 Hyperlipidemia, unspecified; E78.00 Pure hypercholesterolemia, unspecified; Z86.73 Personal history of transient ischemic attack (TIA), and cerebral infarction without residual deficits; Z97.2 Presence of dental prosthetic device (complete) (partial); Z79.51 Long term (current) use of inhaled steroids; Z79.82 Long term (current) use of aspirin; Z79.02 Long term (current) use of antithrombotics/antiplatelets; Z79.899 Other long term (current) drug therapy; Z79.891 Long term (current) use of opiate analgesic
CPT/HCPCS: 93623; 93620; 80048; 85025; C1894; C1769 ×2; C1730 ×3; J2250; J0690; J2001; J3010

== ENCOUNTER → 2021-08-31 | Outpatient (CLI) | payer MEDICARE ==
[2021-08-31 11:55] LABS: Basophils % (A) 1 %; Eosinophils # (A) 0.3 k/uL (0-0.7); Eosinophils % (A) 5 %; HCT 47.1 % (39.0-53.0); HGB 15.3 gm/dL (13.0-17.5); Lymphocytes # (A) 2.1 k/uL (1.0-4.8); Lymphocytes % (A) 31 %; MCH 30.1 pg (25.0-35.0); MCHC 32.5 g/dL (31.0-37.0); MCV 92.6 fL (80.0-100.0); Mean Platelet Volume 8.6; Monocytes # (A) 0.5 k/uL (0-1.0); Monocytes % (A) 8 %; Neutrophils # (A) 3.8 k/uL (1.3-7.7); Neutrophils % (A) 54 %; Platelet Count 158 k/uL (150-450); RBC 5.08 m/uL (4.30-5.90); RDW 13.6 % (11.5-15.5); WBC 6.9 k/uL (3.8-10.6)
[2021-08-31 12:12] LABS: Appearance,Urine Clear (Clear); Bilirubin,Urine Negative (Negative); Blood,Urine Small (Negative); Color,Urine Yellow; Glucose,Urine (UA) Negative (Negative); Ketones,Urine Negative (Negative); Leukocyte Esterase,Urine Moderate (Negative); Mucus,Urine Occasional /hpf; Nitrite,Urine Negative (Negative); Protein,Urine Trace (Negative); RBC,Urine 20 /hpf (0-5); Specific Gravity,Urine 1.029 (1.001-1.035); WBC,Urine 7 /hpf (0-5)
[2021-08-31 12:47] LABS: Albumin 3.8 g/dL (3.5-5.0); Calcium 9.4 mg/dL (8.4-10.2); Potassium 4.8 mmol/L (3.5-5.1); Total Bilirubin 0.5 mg/dL (0.2-1.3); Total Protein 6.6 g/dL (6.3-8.2)
== END | disposition home or self-care (01) ==
LOC: LABPAT 10:19
PROVIDERS: ATTEND Urology
DX: Z01.812 Encounter for preprocedural laboratory examination (principal); N40.1 Benign prostatic hyperplasia with lower urinary tract symptoms; R33.9 Retention of urine, unspecified
CPT/HCPCS: 36415; 80053; 81001; 85025; 87086

== ENCOUNTER 2021-09-08 07:21 | Day surgery (SDC) | payer MEDICARE ==
[2021-09-06 11:46] VITALS: BMI 29.1
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
[~2021-09-08 07:21] MED LIST changes: +AMPICILLIN 2,000 MG in SODIUM CHLORIDE 0.9% 100 ML IVPB PRN; +DEXAMETHASONE SOD PHOSPHATE 4 MG/ML 1 ML VIAL IV ONE; +GENTAMICIN 120 MG in SODIUM CHLORIDE 0.9% 100 ML IVPB PRN; +LIDOCAINE 1% (10MG/ML) FOR IV START INTRADERMA PRN; +MIDAZOLAM 2 MG/2 ML VIAL IV PRN; +ONDANSETRON 4 MG/2 ML VIAL IVP ONE; -SODIUM CHLORIDE 0.9% 1,000 ML IV SCH; -ceFAZolin 1 GM in SODIUM CHLORIDE 0.9% 250 ML IRRIGATION PRN
[2021-09-08] MEDS ORDERED: LACTATED RINGERS 1,000 ML IV ONE (07:42)
[2021-09-08] MEDS ORDERED: PROPOFOL 10 MG/ML 20 ML VIAL IV ONE (08:23)
[2021-09-08] MEDS ORDERED: LIDOCAINE 1% INJ 10MG/ML (20 ML MDV) ONE (08:23)
[2021-09-08] MEDS ORDERED: NEOSTIGMINE 1 MG/ML 10 ML VIAL ONE (08:23)
[2021-09-08] MEDS ORDERED: ePHEDrine 50 MG/ML 1 ML AMP ONE (08:23)
[2021-09-08] MEDS ORDERED: ROCURONIUM 10 MG/ML (5 ML VIAL) IV ONE (08:23)
[2021-09-08] MEDS ORDERED: SUCCINYLCHOLINE CHLORIDE 100 MG/5 ML SYR IV ONE (08:23)
[2021-09-08] MEDS ORDERED: MIDAZOLAM 2 MG/2 ML VIAL ONE (08:23)
[2021-09-08] MEDS ORDERED: HYDROmorphone (PF) 1 MG/ML ONE (08:23)
[2021-09-08] MEDS ORDERED: GLYCOPYRROLATE 0.2 MG/ML 2 ML VIAL ONE (08:23)
[2021-09-08] MEDS ORDERED: fentaNYL (PF) 50 MCG/ML 2 ML AMP ONE (08:23)
--- NOTE | 2021-09-08 10:29 | P.OP ---
Date of Procedure: 09/08/21 Preoperative Diagnosis: Urine retention secondary to BPH Postoperative Diagnosis: Same Procedure(s) Performed: Cystoscopy with bipolar TURP Anesthesia: JUVE Surgeon: Beck Hall Estimated Blood Loss (ml): 100 Pathology: other (prostate) Condition: stable Disposition: PACU Operative Findings: The patient is 71. He is in urine retention. His failed medical management. He comes for a bipolar TURP Description of Procedure: Patient is brought to the operating suite. He is given general anesthesia. He's placed lithotomy position with sterile prep and drape. The Arellano catheters previously removed. The urethra is cut to 30-Tunisian with the [place] urethrotome. A 25-Tunisian sheath tract vision obturator and Foroblique lenses introduced in urethra is normal prostatic urethra shows trilobar obstruction with a vascular prostate intravesical middle lobe and heavy trabeculation. With the Nextly resectoscope Foroblique lens super second loop and bipolar to achieve the middle lobe was first resected. I then moved to the left lateral lobe resect from 12:00 to 6:00 in the proximal prostate and then the distal prostate with the margin being the verumontanum. I do the same on the right side. I then resect the redundant tissue on the floor. I freed the bladder of prostatic chips with the Maritzaik evacuator. I reinspected the prostate and control any bleeding with electrocautery. The no remaining prostatic chips in the bladder. I removed the resectoscope. I introduce an 18-Tunisian coud-tip catheter into the bladder. The urine is clear to light pink upon return. The patient is awakened and returned recovery room in good condition tolerated the procedure well. The blood loss is approximately 100 mL. He'll be discharged upon covering and following the office early next week for catheter removal.
[2021-09-08 10:31] VITALS: TEMP 97
[2021-09-08] MEDS ORDERED: ALBUTEROL NEBULIZED 2.5 MG/3 ML INHALATION ONE ×2 (10:34→10:36)
[2021-09-08 10:38] VITALS: RESP 16
[2021-09-08] MEDS: HYDROmorphone 0.5 MG/0.5 ML SYRINGE IVP PRN ×2 (10:56→11:05)
[2021-09-08] MEDS ORDERED: HYDROcodone/APAP 5-325MG 1 EACH TAB PO ONE (12:10)
[2021-09-08] MEDS ORDERED: HYDROcodone/APAP 5-325MG 1 EACH TAB ONE (12:11)
[2021-09-08 12:41] VITALS: BP 100/65; PULSE 63
== END 2021-09-08 13:09 | disposition home or self-care (01) ==
LOC: OR 07:21
PROVIDERS: ATTEND Urology
DX: N40.1 Benign prostatic hyperplasia with lower urinary tract symptoms (principal); N13.8 Other obstructive and reflux uropathy; Z20.822 Contact with and (suspected) exposure to COVID-19
CPT/HCPCS: 52601; 88305; 87635; J2250; J1100; J2710; J2405; J2001; J3010; J1580; J0290; J1170 ×2; J0330; J2704

== ENCOUNTER → 2022-05-03 | Outpatient (CLI) | payer MEDICARE ==
[2022-05-03 14:28] LABS: Basophils # (A) 0.07 X 10*3/uL (0.00-0.10); Basophils % (A) 0.8 %; Eosinophils # (A) 0.37 X 10*3/uL (0.04-0.35); HCT 46.2 % (39.6-50.0); HGB 15.2 g/dL (13.0-17.0); Immature Grans, Automated 0.5 %; Lymphocytes % (A) 40.4 %; MCHC 32.9 g/dL (32.0-37.0); MCV 91.1 fL (80.0-97.0); Mean Platelet Volume 11.5 fL (9.5-12.2); Monocytes % (A) 9.8 %; NRBC Per 100 WBC 0 /100 WBCS (0.0-0.0); Neutrophils # (A) 4.07 X 10*3/uL (1.80-7.70); Neutrophils % (A) 44.5 %; Platelet Count 171 X 10*3/uL (140-440); RBC 5.07 X 10*6/uL (4.40-5.60); RDW 14.3 % (11.5-14.5); WBC 9.16 X 10*3/uL (4.50-10.00)
[2022-05-03 14:47] LABS: African American GFR (CKD) 61.2 (60.0-200.0); BUN/Creat Ratio 8.89 Ratio (12.00-20.00); Calcium 8.5 mg/dL (8.7-10.3); Carbon Dioxide 23.5 mmol/L (20.0-27.5); Non-African American GFR(CKD) 52.8 (60.0-200.0)
== END | disposition home or self-care (01) ==
LOC: LABWHC1 10:05
PROVIDERS: ATTEND Internal Medicine Interventional Cardiology
DX: I25.10 Atherosclerotic heart disease of native coronary artery without angina pectoris (principal)
CPT/HCPCS: 36415; 80048; 85025

== ENCOUNTER 2022-05-05 06:52 | Day surgery (SDC) | payer MEDICARE ==
[2022-04-29 12:35] VITALS: BMI 30.8
[~2022-05-05 06:52] MED LIST changes: +ALPRAZolam 0.25 MG TAB PO PRN; +ALPRAZolam 0.5 MG TAB PO PRN; -AMPICILLIN 2,000 MG in SODIUM CHLORIDE 0.9% 100 ML IVPB PRN; -DEXAMETHASONE SOD PHOSPHATE 4 MG/ML 1 ML VIAL IV ONE; -GENTAMICIN 120 MG in SODIUM CHLORIDE 0.9% 100 ML IVPB PRN; -LACTATED RINGERS 1,000 ML IV SCH; -LIDOCAINE 1% (10MG/ML) FOR IV START INTRADERMA PRN; -MIDAZOLAM 2 MG/2 ML VIAL IV PRN; +NITROGLYCERIN SL TABS 0.4 MG TAB SUBLINGUAL PRN; -ONDANSETRON 4 MG/2 ML VIAL IVP ONE; +SODIUM CHLORIDE 0.9% 1,000 ML IV SCH; +SODIUM CHLORIDE 0.9% 1,000 ML in EMPTY BAG 1 BAG IV SCH
[2022-05-05] MEDS ORDERED: ASPIRIN 325 MG TAB PO ONE (07:00)
[2022-05-05] MEDS ORDERED: HEPARIN SODIUM,PORCINE 10,000 UNIT in SODIUM CHLORIDE 0.9% 1,000 ML IRRIGATION PRN (07:00)
[2022-05-05] MEDS ORDERED: HEPARIN SODIUM,PORCINE 2,500 UNIT in SODIUM CHLORIDE 0.9% 250 ML IRRIGATION PRN (07:00)
[2022-05-05] MEDS ORDERED: ATORVASTATIN 80 MG TAB PO ONE (07:00)
[2022-05-05] MEDS ORDERED: ASPIRIN 81 MG ONE (07:08)
[2022-05-05 07:31] VITALS: TEMP 97.5
[2022-05-05] MEDS ORDERED: VERAPAMIL 2.5 MG/ML 2 ML AMP ONE (10:10)
[2022-05-05] MEDS ORDERED: HEPARIN SODIUM 1,000 UN/ML (10ML VL) ONE (10:10)
[2022-05-05] MEDS ORDERED: MIDAZOLAM 2 MG/2 ML VIAL IV ONE (11:03)
[2022-05-05] MEDS ORDERED: LIDOCAINE 1% INJ 10MG/ML (30 ML VIAL-PF) SQ ONE ×2 (11:13)
[2022-05-05] MEDS ORDERED: LIDOCAINE 1% INJ 10MG/ML (5 ML VIAL-PF) SQ ONE (11:13)
[2022-05-05] MEDS ORDERED: IOPAMIDOL-370 100ML BTL INJ ONE (11:32)
[2022-05-05] MEDS ORDERED: IOPAMIDOL-370 50ML BTL INJ ONE (11:36)
[2022-05-05] MEDS ORDERED: SODIUM CHLORIDE 0.9% 1,000 ML IV SCH (11:40)
--- NOTE | 2022-05-05 11:51 | P.CARDCATH ---
Description of Procedure: History: Patient was referred for cardiac catheterization to evaluate for CAD. This patient has history of CAD, previous multivessel PCI. He has had LAD intervention following a myocardial infarction in 2006 and the most recent procedures were stenting of mid LAD as well as ox midportion of the major diagonal branch performed in June 2018. These vessels were patent in 2019 and also RCA had a 40% lesion unchanged. He has been having symptoms strongly suggestive angina including rest symptoms requiring sublingual nitroglycerin and therefore he was advised cardiac catheterization after due discussion regarding risks benefits and options. He has a stable abdominal aortic aneurysm. He has history of some occipital stroke and macular degeneration as well. Patient is legally blind. He was advised cardiac cath and all risks benefits and options were explained to the patient he understood all details and wish to proceed with the procedure Procedure Details: The risks, benefits, complications, treatment options, and expected outcomes were discussed with the patient. The patient and/or family concurred with the proposed plan, giving informed consent. Patient was brought to the asphalt plant laborer after IV hydration was begun and oral premedication was given. Patient was further sedated with midazolam. Patient was prepped and draped in the usual manner. Under strict aseptic precautions and local anesthesia a 6 Chinese introducer was placed in the right femoral artery. Using standard Ta catheters coronary angiography was performed and pigtail catheter was used to check LV pressures but LV gram was not performed. An Angio-Seal device was used to secure hemostasis and patient was sent to the room in a stable condition. Moderate conscious sedation time was 30 minutes. Patient's oxygen saturation hemodynamics and EKG were monitored closely. After the procedure was completed the sheaths and catheters were all removed. Hemostasis was achieved with Angio-Seal device. Findings: Hemodynamics: The left end-diastolic pressure was 18 mmHg without any gradient across aortic valve Left Main: Normally pitting left main and the ostial and proximal portion distally there is about a 20% narrowing unchanged from 2019 and 2018 angiograms LAD: [Good caliber vessel extends along the anterior wall gives of a good-sized diagonal branch proximally. LAD and diagonal are widely patent in the site of stenting without significant disease. There are minor irregularities in the LAD system. No significant disease. CIRC: Nondominant vessel gives off 2 small branches no significant disease minor irregularities noted RCA: Technically dominant vessel has a 40% proximal lesion unchanged and distally bifurcates into PDA and PLV. Dominant vessel minor irregularities 40% proximal lesion and no other significant disease. Angiographic appearance is similar to in 2018 Closure Device: Angio-Seal Complications: None Estimated Blood Loss: Minimal Impression: Moderate stable triple vessel disease without significant change from before patient has elevated filling pressures no gradient right dominant system 40% proximal RCA disease, 20% distal left main disease, LAD and diagonal stents are patent minor irregularities in nondominant circumflex Pre Procedure Diagnosis: Moderate triple-vessel CAD Final Post Procedure Diagnosis: Moderate triple-vessel CAD Recommendation: Continue medical therapy add 12.5 mg of Aldactone and increase Lasix from 40-60 mg daily discharged later on today and I will see him in the office in one week. Findings discussed with patient and family Complications: None; patient tolerated the procedure well. Disposition: ESU- hemodynamically stable. Condition: Stable Discharge Disposition: Discharge patient home later on today.
[2022-05-05 17:58] VITALS: BP 122/59; PULSE 70; RESP 18
== END 2022-05-05 17:13 | disposition home or self-care (01) ==
LOC: CATHCVL 06:52
PROVIDERS: ATTEND Internal Medicine Interventional Cardiology
DX: I25.10 Atherosclerotic heart disease of native coronary artery without angina pectoris (principal); I10 Essential (primary) hypertension; I25.5 Ischemic cardiomyopathy; E78.5 Hyperlipidemia, unspecified; Z87.891 Personal history of nicotine dependence; G47.33 Obstructive sleep apnea (adult) (pediatric); J43.9 Emphysema, unspecified; I71.4 Abdominal aortic aneurysm, without rupture; Z95.5 Presence of coronary angioplasty implant and graft; E78.00 Pure hypercholesterolemia, unspecified; Z79.02 Long term (current) use of antithrombotics/antiplatelets; Z79.82 Long term (current) use of aspirin; Z79.899 Other long term (current) drug therapy; Z20.822 Contact with and (suspected) exposure to COVID-19
CPT/HCPCS: 93458; 87635; C1760; C1769 ×3; C1894 ×2; J2250; J2001 ×2; Q9967 ×2

== ENCOUNTER 2023-03-14 20:07 | Observation (INO) | payer MEDICARE ==
[2023-03-14] MEDS ORDERED: ASPIRIN 81 MG PO STA (20:52)
[2023-03-14] MEDS ORDERED: MORPHINE SULFATE 4 MG/ML SYRINGE IV STA ×2 (20:52→22:21)
[2023-03-14] MEDS ORDERED: NITROGLYCERIN OINT 1 INCH/GM PACKET TOPICAL STA (20:52)
[2023-03-14] MEDS ORDERED: NITROGLYCERIN SL TABS 0.4 MG TAB SUBLINGUAL STA (20:52)
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
[2023-03-14 20:54] LABS: Basophils # (A) 0.1 k/uL (0-0.2); Basophils % (A) 1 %; Eosinophils # (A) 0.3 k/uL (0-0.7); Eosinophils % (A) 3 %; HCT 47.2 % (39.0-53.0); HGB 15.7 gm/dL (13.0-17.5); Lymphocytes # (A) 3.2 k/uL (1.0-4.8); Lymphocytes % (A) 39 %; MCH 30.3 pg (25.0-35.0); MCHC 33.2 g/dL (31.0-37.0); MCV 91.2 fL (80.0-100.0); Mean Platelet Volume 9.3; Monocytes # (A) 0.6 k/uL (0-1.0); Monocytes % (A) 7 %; Neutrophils # (A) 4.1 k/uL (1.3-7.7); Neutrophils % (A) 49 %; Platelet Count 174 k/uL (150-450); RBC 5.18 m/uL (4.30-5.90); RDW 13.2 % (11.5-15.5); WBC 8.3 k/uL (3.8-10.6)
--- NOTE | 2023-03-14 21:02 | XR ---
EXAMINATION TYPE: XR chest 2V DATE OF EXAM: 03/14/2023 COMPARISON: Chest x-ray December 25, 2013 HISTORY: Chest pain. TECHNIQUE: Frontal and lateral views of the chest are obtained. FINDINGS: There is chronic parenchymal change bilaterally without suspicious focal air space opacity , pleural effusion, or pneumothorax seen. The cardiac silhouette size is within normal limits. The osseous structures are intact. IMPRESSION: Chronic emphysematous change without acute pulmonary process.
[2023-03-14 21:06] LABS: Partial Thromboplastin Time 22.7 sec (22.0-30.0); Prothrombin Time 10.3 sec (9.0-12.0)
[2023-03-14 21:43] LABS: Albumin 3.8 g/dL (3.5-5.0); Calcium 8.3 mg/dL (8.4-10.2); Potassium 4.3 mmol/L (3.5-5.1); Total Bilirubin 0.7 mg/dL (0.2-1.3); Total Protein 6.7 g/dL (6.3-8.2)
[2023-03-14] MEDS ORDERED: NITROGLYCERIN SL TABS 0.4 MG TAB SUBLINGUAL PRN (22:00)
[2023-03-14] MEDS ORDERED: ALBUTEROL NEBULIZED 2.5 MG/3 ML INHALATION STA (22:05)
[2023-03-14] MEDS ORDERED: IPRATROPIUM-ALBUTEROL 3 ML NEB INHALATION PRN (22:34)
[2023-03-15] MEDS: IPRATROPIUM-ALBUTEROL 3 ML NEB INHALATION SCH ×3 (07:24→15:11)
[2023-03-15] MEDS ORDERED: ASPIRIN 325 MG TAB PO SCH (09:00)
[2023-03-15] MEDS ORDERED: RANOLAZINE 500 MG TAB.ER.12H PO SCH (09:00)
[2023-03-15] MEDS ORDERED: CLOPIDOGREL 75 MG TAB PO SCH (09:00)
[2023-03-15] MEDS ORDERED: ASPIRIN 81 MG PO SCH (09:00)
[2023-03-15] MEDS ORDERED: SACUBITRIL/VALSARTAN 24 MG-26 MG TABLET PO SCH (09:00)
[2023-03-15] MEDS ORDERED: FUROSEMIDE 20 MG TAB PO SCH (09:00)
[2023-03-15] MEDS ORDERED: EZETIMIBE 10 MG TAB PO SCH (09:00)
[2023-03-15] MEDS ORDERED: SPIRONOLACTONE 25 MG TAB PO SCH (09:00)
[2023-03-15 09:13] LABS: Chol/HDL Ratio 4.04 Ratio; LDL Cholesterol,Calculated 54.4 mg/dL (0.0-131.0)
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
[2023-03-15 12:49] LABS: African American GFR (CKD) 47 (>60 ml/min/1.73 sqM); Anion Gap 7 mmol/L; Blood Urea Nitrogen 24 mg/dL (9-20); Calcium 8.9 mg/dL (8.4-10.2); Carbon Dioxide 30 mmol/L (22-30); Chloride 101 mmol/L (98-107); Glucose 155 mg/dL (74-99); Non-African American GFR(CKD) 40 (>60 ml/min/1.73 sqM); Potassium 4.4 mmol/L (3.5-5.1); Sodium 138 mmol/L (137-145)
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
--- NOTE | 2023-03-15 14:53 | P.DS ---
Providers Date of admission: 03/14/23 22:03 Attending physician: Pal Walsh MD Consults: 03/14/23 22:00 Consult Physician Routine Consulting Provider: Navneet Benjamin Consult Reason/Comments: chest pain Do you want consulting provider notified?: Yes Primary care physician: Lety Gerardo Hospital Course: Final Diagnosis Chest pain, acute coronary syndrome ruled out by cardiology Hyponatremia Acute kidney injury History of coronary artery disease with prior cardiac stenting History of COPD with no acute exacerbation Hypertension History of hyperlipidemia Ischemic cardiomyopathy Chronic systolic heart failure Former smoker Discharge Disposition Patient is stable for discharge home. Has been started on ranexa BID by cardiology and recommending to follow up in the office. An acute coronary sy ndrome has been ruled out. Patient recommended to repeat BMP in 2 to 3 days and follow up with primary care provider. Hospital Course This is a 73 year old male with medical history of hypertension, hyperlipidemia, COPD, GERD, prior cardiac stenting, and cardiomyopathy with known EF of 30-35%. Prior history of smoking and alcohol abuse currently has quit both. Presents to the emergency room from home with complaints of midsternal chest pain. Patient was sitting watching the ball game about 5 pm yesterday when he began experiencing chest pain in the middle of chest chest. Denies radiation, denies any dizziness or lightheadedness. Had no associated diaphoresis, nausea, and no shortness of breath. Reports pain does not feel like a burning sensation and not associated with food. Not worse with inspiration. Patient had taken 2 sublingual nitro at home and chewed 2, 81 mg aspirin without relief of symptoms. The SL nitro was per patient. En route, EMS did give patient 3 more SL nitro 5 min apart and in the ED patient was given morphine and started on nitropaste. Chest pain resolved. EKG done on admission showing sinus bradycardia heart rate of 52, no specific ST or T wave changes, patient had negative troponin x 3. Sodium was 135 on admission and had creatinine of 1.86. Unremarkable CBC. Chest xray showing chronic emphysema. At the time of assessment patients symptoms have completely resolved. Patient was admitted in observation for the chest pain. Cardiology has evaluated the patient and recommending to start on ranexa BID and follow up in the office. Creatinine has improved to 1.68. Patient will be discharged home. Please see medication reconciliation for a list of current medication. Thank you for allowing us to participate in the care of this patient. The impression and plan of care has been dictated by Ghada Conner, Nurse Practitioner as directed. Dr. Bishop MD I have performed a history and physical examination and medical decision making of this patient, discussed the same with the dictator, and agree with the dictators assessment and plan as written, documented as a scribe. Based on total visit time, I have performed more than 50% of this visit. Patient Condition at Discharge: Good Plan - Discharge Summary New Discharge Prescriptions: New Ranolazine [Ranexa] 500 mg PO BID #60 tab Continue Gabapentin [Neurontin] 600 mg PO TID Ipratropium/Albuterol Sulfate [Combivent Respimat Inhaler] 1 puff INHALATION RT-QID Metoprolol Tartrate [Lopressor] 50 mg PO BID Aspirin 81 mg PO DAILY chew Clopidogrel [Plavix] 75 mg PO DAILY #90 tab Isosorbide Mononitrate ER [Imdur] 30 mg PO BID Triamcinolone 0.5% Cream [Kenalog 0.5% Cream] 1 applic TOPICAL BID PRN PRN Reason: Rash Ezetimibe [Zetia] 10 mg PO DAILY Furosemide [Lasix] 60 mg PO DAILY Ipratropium-Albuterol Nebulize [Duoneb 0.5 mg-3 mg/3 ml Soln] 3 ml INHALATION RT-QID Rosuvastatin [Crestor] 20 mg PO HS HYDROcodone/APAP 7.5-325MG [[place] 7.5-325] 1 tab PO TID PRN PRN Reason: Muscle Spasm Cyclobenzaprine [Flexeril] 5 mg PO TID Montelukast Sodium [Singulair] 10 mg PO DAILY Sacubitril/Valsartan [Entresto 24 mg-26 mg Tablet] 1 tab PO BID Omeprazole [PriLOSEC] 20 mg PO BID Spironolactone [Aldactone] 12.5 mg PO DAILY Changed Nitroglycerin Sl Tabs [Nitrostat] 0.4 mg SL Q5M PRN #20 tab PRN Reason: Chest Pain Discharge Medication List Gabapentin [Neurontin] 600 mg PO TID 07/20/18 [History] Ipratropium/Albuterol Sulfate [Combivent Respimat Inhaler] 1 puff INHALATION RT- QID 07/20/18 [History] Metoprolol Tartrate [Lopressor] 50 mg PO BID 07/20/18 [History] Aspirin 81 mg PO DAILY chew 07/25/18 [Rx] Clopidogrel [Plavix] 75 mg PO DAILY #90 tab 07/25/18 [Rx] Isosorbide Mononitrate ER [Imdur] 30 mg PO BID 05/14/20 [History] Montelukast Sodium [Singulair] 10 mg PO DAILY 09/06/21 [History] Sacubitril/Valsartan [Entresto 24 mg-26 mg Tablet] 1 tab PO BID 09/06/21 [History] Omeprazole [PriLOSEC] 20 mg PO BID 04/29/22 [History] Cyclobenzaprine [Flexeril] 5 mg PO TID 03/14/23 [History] Ezetimibe [Zetia] 10 mg PO DAILY 03/14/23 [History] Furosemide [Lasix] 60 mg PO DAILY 03/14/23 [History] HYDROcodone/APAP 7.5-325MG [[place] 7.5-325] 1 tab PO TID PRN 03/14/23 [History] Ipratropium-Albuterol Nebulize [Duoneb 0.5 mg-3 mg/3 ml Soln] 3 ml INHALATION RT-QID 03/14/23 [History] Rosuvastatin [Crestor] 20 mg PO HS 03/14/23 [History] Spironolactone [Aldactone] 12.5 mg PO DAILY 03/14/23 [History] Triamcinolone 0.5% Cream [Kenalog 0.5% Cream] 1 applic TOPICAL BID PRN 03/14/23 [History] Nitroglycerin Sl Tabs [Nitrostat] 0.4 mg SL Q5M PRN #20 tab 03/15/23 [Rx] Ranolazine [Ranexa] 500 mg PO BID #60 tab 03/15/23 [Rx] Follow up Appointment(s)/Referral(s): Huber Way MD [STAFF PHYSICIAN] - 1 Week Lety Gerardo MD [Primary Care Provider] - 1-2 days Ambulatory/Diagnostic Orders: Basic Metabolic Panel [LAB.AMB] Time Frame: 3 Days, Location: None Selected Patient Instructions/Handouts: Chest Pain (DC) Activity/Diet/Wound Care/Special Instructions: Script for follow up labs is on the ER printer Please give to patient before discharge Follow up with Dr. Gerardo and Dr. GIOVANY aWy on discharge. New prescription for SL nitro has been sent in for you Begin taking ranexa twice a day this is for angina Discharge Disposition: HOME SELF-CARE
[2023-03-15 15:03] VITALS: BP 118/76; PULSE 78; RESP 18; TEMP 98.3
[2023-03-15] MEDS ORDERED: ATORVASTATIN 40 MG TAB PO SCH (21:00)
[2023-03-16] MEDS ORDERED: ASPIRIN 81 MG PO SCH (09:00)
== END 2023-03-15 15:14 | disposition home or self-care (01) ==
LOC: EC 20:07 → 6NMEDSUR 22:03
PROVIDERS: ADMIT Internal Medicine; ATTEND Internal Medicine
DX: R07.89 Other chest pain (principal); N17.9 Acute kidney failure, unspecified; E87.1 Hypo-osmolality and hyponatremia; I11.0 Hypertensive heart disease with heart failure; I50.22 Chronic systolic (congestive) heart failure; I25.5 Ischemic cardiomyopathy; I25.10 Atherosclerotic heart disease of native coronary artery without angina pectoris; J43.9 Emphysema, unspecified; E78.5 Hyperlipidemia, unspecified; K21.9 Gastro-esophageal reflux disease without esophagitis; R00.1 Bradycardia, unspecified; I25.2 Old myocardial infarction; G89.29 Other chronic pain; M54.50 Low back pain, unspecified; R73.03 Prediabetes; I69.998 Other sequelae following unspecified cerebrovascular disease; H54.8 Legal blindness, as defined in USA; Z79.82 Long term (current) use of aspirin; Z79.02 Long term (current) use of antithrombotics/antiplatelets; Z79.899 Other long term (current) drug therapy; Z95.5 Presence of coronary angioplasty implant and graft; Z90.49 Acquired absence of other specified parts of digestive tract; Z87.828 Personal history of other (healed) physical injury and trauma; Z87.891 Personal history of nicotine dependence; Z87.898 Personal history of other specified conditions; Z90.79 Acquired absence of other genital organ(s); Z98.890 Other specified postprocedural states; Z81.2 Family history of tobacco abuse and dependence; Z82.5 Family history of asthma and other chronic lower respiratory diseases; Z80.1 Family history of malignant neoplasm of trachea, bronchus and lung
CPT/HCPCS: 96376; 96374; 99285; 36415; 93005; 80061; 80053; 80048; 82150; 83690; 83735; 84484 ×2; 85025; 85610; 85730; 71046; G0378 ×2; J2270; 96375

== ENCOUNTER → 2024-02-08 | Outpatient (CLI) | payer MEDICARE ==
[2024-02-08 13:40] VITALS: BP 143/83; PULSE 54; RESP 16; TEMP 97.4
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
== END ==
LOC: 3 N SLEEP 13:13
PROVIDERS: ATTEND Internal Medicine
DX: G47.33 Obstructive sleep apnea (adult) (pediatric) (principal); I25.10 Atherosclerotic heart disease of native coronary artery without angina pectoris; I10 Essential (primary) hypertension; M51.9 Unspecified thoracic, thoracolumbar and lumbosacral intervertebral disc disorder; M54.9 Dorsalgia, unspecified; E78.5 Hyperlipidemia, unspecified; J44.9 Chronic obstructive pulmonary disease, unspecified; K21.9 Gastro-esophageal reflux disease without esophagitis; F17.210 Nicotine dependence, cigarettes, uncomplicated; Z95.5 Presence of coronary angioplasty implant and graft; Z79.899 Other long term (current) drug therapy; Z79.02 Long term (current) use of antithrombotics/antiplatelets
CPT/HCPCS: 99211

== ENCOUNTER 2024-03-13 19:23 | Outpatient (CLI) | payer MEDICARE ==
--- NOTE | 2024-03-14 17:23 | P.PCN ---
Description of Procedure: POLYSOMNOGRAPHY REPORT PROCEDURE(S)/DATE(S): Polysomnography 03/13/2024 CLINICAL: Patient has been seen in the sleep center for evaluation of obstructive sleep apnea-hypopnea syndrome. Please see my consultation. Sleep study has been done for evaluation of patient breathing during the sleep. PROCEDURE: The standard montage for clinical polysomnography included the electroencephalogram, the electrooculogram, the mentalis surface electromyography and Lead II cardiography. The respiratory battery consisted of measurements of nasal/buccal air flow, pressure transducer measurements from nose, thoracic and/or abdominal effort and intercostal surface electromyography. Video monitoring has been done to check for any parasomnia events. Nocturnal oxyhemoglobin saturations were obtained by finger oximetry. Step-pedersen titration with positive airway pressure was utilized to control the respiratory events, if necessary. RESULTS: During the diagnostic sleep study sleep efficiency was significantly decreased to 71.4%. Latency to sleep onset was significantly prolonged to 69.0 min. Sleep architecture showed stage NI was in very high range 39.2%, Delta sleep was absent 0%, REM sleep was in very low range 5.7%. Respiratory channel showed 1 obstructive apneas, 0 mixed apneas, 0 central apneas, 7 hypopneas with lowest oxygen level 79%. Total apnea hypopnea index was 1.7. Oxygen level was below 89% for 42 minutes according to computer calculation. Heart rate was in the range between 56 and 63, average 59. EMG showed 5.0 periodic limb movements per hour with 0.8 micro-arousals per hour. IMPRESSIONS: 1. No significant obstructive sleep apnea's or hypopneas. 2. No significant periodic limb movements have been documented. 3. History of COPD. Oxygen level was below normal range during the sleep study for 42 minutes. Please see other impressions from consultation PLAN: 1. I will see patient for follow-up visit to explain results of the test and recommendations 2. Will will consider to start patient on oxygen supplement. 3. Sleep hygiene with regular time in bed for at least 7-1/2 hours. 4. No driving if feeling sleepiness. Thank you very much for allowing me to participate in the management of your patient. Sincerely, Dante Tabares MD, PhD, FAASM. Diplomat of [place] [employer], Sleep Medicine Board by [place] [employer] Critical Care Rn of [facility] [place]
== END 2024-03-14 05:50 | disposition home or self-care (01) ==
LOC: 3 N SLEEP 19:23
PROVIDERS: ATTEND Internal Medicine
DX: G47.33 Obstructive sleep apnea (adult) (pediatric) (principal); G47.61 Periodic limb movement disorder; J44.9 Chronic obstructive pulmonary disease, unspecified; G47.8 Other sleep disorders; F12.90 Cannabis use, unspecified, uncomplicated; Z87.891 Personal history of nicotine dependence
CPT/HCPCS: 95810

== ENCOUNTER → 2024-06-26 | Outpatient (CLI) | payer MEDICARE ==
--- NOTE | 2024-06-26 09:23 | CT ---
EXAMINATION TYPE: CT lumbar spine wo con DATE OF EXAM: 06/26/2024 COMPARISON: None HISTORY: 74-year-old male M54.50, Lumbar pain, bulging disk TECHNIQUE: Contiguous axial scanning of the lumbar spine without IV contrast. Coronal and sagittal re constructions performed. CT DLP: 852 mGycm Automated exposure control for dose reduction was used. FINDINGS: Moderate prostatic calcifications throughout the abdominal aorta. More severe in the iliac arteries w ith possible severe stenosis at the left common iliac artery bifurcation and proximal left external i liac artery. Either moderate to severe stenosis proximal right external iliac artery. There is bilobed fusiform aneurysms infrarenal abdominal aorta measuring up to 3.0 cm superiorly and 3.9 cm inferiorly. Additional dilatation of the right common iliac artery 1.6 cm. Partially visualized large right renal cyst measuring up to 6.5 cm. Vertebral body heights are preserved. There is straightening of the normal lumbar lordosis. Moderate hypertrophic facet arthropathy mid to lower lumbar spine. Degenerative grade 1 retrolisthesis L3-L4 and L4-L5. Severe degenerative disc disease lower lumbar spine and moderate L2-L3 and L3-L4. No large focal disc herniation or significant spinal canal stenosis. On the right, changes of blunted moderate neuroforaminal stenosis at L4-L5 and L5-S1 and mild at L3-L 4. On the left, changes result in moderate to severe neuroforaminal stenosis at L5-S1. Moderate at L4-L5 . Mild at L3-L4. IMPRESSION: 1. NOTE INCIDENTAL VASCULAR FINDINGS MENTIONED ABOVE INCLUDING THE BILOBED FUSIFORM INFRARENAL AAA ME ASURING UP TO 3.9 CM. POSSIBLE SEVERE STENOSIS LEFT COMMON ILIAC ARTERY BIFURCATION. 2. Moderate to advanced degenerative disc disease mid to lower lumbar spine. No large focal disc mila iation or significant spinal canal stenosis by CT. 3. Moderate facet arthropathy mid to lower lumbar spine with a degenerative grade 1 retrolisthesis L3 -L4 and L4-L5. 4. Variable neuroforaminal narrowing as outlined above; moderate on both sides at L4-L5 and L5-S1 tho ugh more moderate to severe on the left at L5-S1.
== END | disposition home or self-care (01) ==
LOC: RADCTMAIN 06:44
PROVIDERS: ATTEND Orthopaedic Surgery
DX: M54.50 Low back pain, unspecified
CPT/HCPCS: 72131